=== PATIENT | male | born 1980 | race Caucasian/White ===

== ENCOUNTER 2018-11-03 15:05 | Emergency (ER) | payer BC ==
[2018-11-03 15:18] VITALS: BP 161/98
--- NOTE | 2018-11-03 15:48 | UC ---
Eye Complaint HPI - HPI Summary HPI Summary: Patient was doing work at home, started to get blurred vision in the left eye, in the left field of view. about 15 mins later, developed a mild headache at the occipital region. he does have untreaed hypertension, he sat down, got a drink hoping it would improve, but it remains the same. he has had no weakness, slurred speech or memory deficit. - History of Current Complaint Chief Complaint: UCHeadache Stated Complaint: DOWNING,BLURRED VISION Time Seen by Provider: 11/03/18 15:43 Hx Obtained From: Patient Onset/Duration: Sudden Onset, Lasting Hours Severity Initially: Mild Severity Currently: Mild Pain Intensity: 1 Associated Signs And Symptoms: Positive: Vision Impairment Left - Allergies/Home Medications Allergies/Adverse Reactions: Allergies Allergy/AdvReac Type Severity Reaction Status Date / Time No Known Allergies Allergy Verified 11/03/18 15:18 Home Medications: Home Medications NK [No Home Medications Reported] 11/03/18 [History Confirmed 11/03/18] PMH/Surg Hx/FS Hx/Imm Hx Previously Healthy: Yes - Surgical History Surgical History: Yes Surgery Procedure, Year, and Place: VASECTOMY - Family History Known Family History: Positive: Hypertension - Social History Alcohol Use: None Substance Use Type: None Smoking Status (MU): Never Smoked Tobacco Review of Systems All Other Systems Reviewed And Are Negative: Yes Constitutional: Positive: Negative Skin: Positive: Negative Eyes: Positive: Blurred Vision ENT: Positive: Negative Respiratory: Positive: Negative Cardiovascular: Positive: Negative Gastrointestinal: Positive: Negative Genitourinary: Positive: Negative Motor: Positive: Negative Musculoskeletal: Positive: Negative Neurological: Positive: Headache Psychological: Positive: Negative Is Patient Immunocompromised?: No Physical Exam Triage Information Reviewed: Yes Appearance: Well-Appearing, Well-Nourished, Pain Distress Vital Signs: Initial Vital Signs Temp 98.1 F 11/03/18 15:15 Pulse 81 11/03/18 15:15 Resp 17 11/03/18 15:15 BP 161/98 11/03/18 15:15 Pulse Ox 100 11/03/18 15:15 Vital Signs Reviewed: Yes Eye Exam: Normal ENT Exam: Normal Dental Exam: Normal Neck exam: Normal Respiratory Exam: Normal Respiratory: Positive: Chest non-tender, Lungs clear, Normal breath sounds Cardiovascular Exam: Normal Cardiovascular: Positive: RRR, No Murmur, Pulses Normal Abdominal Exam: Normal Abdomen Description: Positive: Nontender, No Organomegaly, Soft Musculoskeletal Exam: Normal Musculoskeletal: Positive: Strength Intact, ROM Intact, No Edema Neurological: Positive: Alert, Muscle Tone Normal, Other: - PERRLA, EOMI, right field of vision is clear, left field of vision becomes blurry around 80 degrees and loses the vision completey before 180 degrees. No weakness in extremities, speech is clear, able to walk heel to toe in straight line, NEg rhomberg. Psychological Exam: Normal Skin Exam: Normal Eye Complaint Course/Dx - Course Course Of Treatment: hx obtained, exam performed ,meds reviewed, consulted Dr Ching from neurology who recommended an opthamology appoiontment with a referral to ER if they find it necessary. Dr Sue consulted as well. we agreed to CT his Head before sending him anywhere patient is in agreement. - Differential Dx/Diagnosis Differential Diagnosis/HQI/PQRI: Detached Retina, Glaucoma, Other - brain hemmorage, migraine Provider Diagnosis: Blurred vision, left eye, Headache, Hypertension Discharge - Sign-Out/Discharge Documenting (check all that apply): Patient Departure All imaging exams completed and their final reports reviewed: Yes - Discharge Plan Condition: Stable Disposition: HOME Patient Education Materials: Blurred Vision (ED), Hypertension (ED) Referrals: Eduin So MD [Primary Care Provider] - Additional Instructions: 1. your CT of head was negative 2. Follow up with your scheduled eye exam tomorrow at 9 am, [facility]. 3. If you develop any more changes in vision, increased headache or more neurological symtpoms please go straight to ER. 4. Follow up with Dr So about your Blood pressure - Billing Disposition and Condition Condition: STABLE Disposition: Home
== END 2018-11-03 16:17 | disposition home or self-care (01) ==
LOC: UCCORT 15:05
DX: H53.8 Other visual disturbances (principal); R51 Headache; I10 Essential (primary) hypertension
CPT/HCPCS: 70450; 99211; G0463

== ENCOUNTER 2019-11-18 10:51 | Emergency (ER) | payer BC ==
[2019-11-18 11:20] VITALS: BP 142/87
--- NOTE | 2019-11-18 12:01 | UC ---
Respiratory Complaint HPI - HPI Summary HPI Summary: cough x 2 weeks cough is dry , worse with deep breathing, better with rest nasal congestion / pnd, no sore throat, no fever, no chills no wheezing, no sob was tested for COVID19 , waiting for the results - History of Current Complaint Chief Complaint: UCRespiratory Stated Complaint: COUGH Time Seen by Provider: 11/18/19 11:07 Hx Obtained From: Patient Onset/Duration: Gradual Onset, Lasting Weeks - 2, Still Present Timing: Constant Severity Initially: Moderate Severity Currently: Moderate Pain Intensity: 0 Character: Cough: Nonproductive Aggravating Factors: Exertion, Deep Breaths Alleviating Factors: Nothing Associated Signs And Symptoms: Positive: URI, Nasal Congestion. Negative: Fever , Chills, Wheezing, Hemoptysis, Dizziness - Allergies/Home Medications Allergies/Adverse Reactions: Allergies Allergy/AdvReac Type Severity Reaction Status Date / Time No Known Allergies Allergy Verified 11/18/19 11:01 Home Medications: Home Medications Benzonatate CAP* [Tessalon 100 MG CAP*] 100 mg PO TID PRN #21 cap 11/18/19 [Rx] Dm/Acetaminophen/Doxylamine [Night Time Cold & Flu Rel 15-6.25-325 mg] 2 cap PO BEDTIME PRN 11/18/19 [History Confirmed 11/18/19] Lisinopril TAB* [Prinivil TAB*] 5 mg PO DAILY 11/18/19 [History Confirmed ] PMH/Surg Hx/FS Hx/Imm Hx Previously Healthy: Yes - Surgical History Surgical History: Yes Surgery Procedure, Year, and Place: VASECTOMY - Family History Known Family History: Positive: Hypertension - Social History Alcohol Use: Occasionally Substance Use Type: None Smoking Status (MU): Never Smoked Tobacco Review of Systems All Other Systems Reviewed And Are Negative: Yes Constitutional: Positive: Negative Skin: Positive: Negative Eyes: Positive: Negative ENT: Positive: Negative Is Patient Immunocompromised?: No Physical Exam Triage Information Reviewed: Yes Appearance: Well-Appearing, No Pain Distress, Well-Nourished Vital Signs: Initial Vital Signs Temp 98.5 F 11/18/19 11:03 Pulse 79 11/18/19 11:03 Resp 16 11/18/19 11:03 BP 142/87 11/18/19 11:03 Pulse Ox 98 11/18/19 11:03 Vital Signs Reviewed: Yes Eye Exam: Normal Eyes: Positive: Conjunctiva Clear ENT: Positive: Normal ENT inspection, Hearing grossly normal, Pharynx normal Neck: Positive: Supple, Nontender, No Lymphadenopathy Respiratory: Positive: Chest non-tender, Lungs clear, Normal breath sounds Cardiovascular: Positive: RRR, No Murmur, Pulses Normal Skin Exam: Normal Respiratory Course/Dx - Differential Dx/Diagnosis Provider Diagnosis: Bronchitis Discharge ED - Sign-Out/Discharge Documenting (check all that apply): Patient Departure All imaging exams completed and their final reports reviewed: No Studies - Discharge Plan Condition: Stable Disposition: HOME Prescriptions: Benzonatate CAP* [Tessalon 100 MG CAP*] 100 mg PO TID PRN #21 cap PRN Reason: Cough Patient Education Materials: Acute Bronchitis (ED) Forms: COVID-19 Eval & Not Tested Referrals: Eduin So MD [Primary Care Provider] - If Needed - Billing Disposition and Condition Condition: STABLE Disposition: Home
== END 2019-11-18 12:03 | disposition home or self-care (01) ==
LOC: UCCORT 10:51
DX: J40 Bronchitis, not specified as acute or chronic (principal)
CPT/HCPCS: 99212; G0463

== ENCOUNTER 2019-12-16 09:34 | Emergency (ER) | payer BC ==
[2019-12-16 09:47] VITALS: BP 159/95
--- NOTE | 2019-12-16 10:01 | UC ---
Lower Extremity/Ankle HPI - HPI Summary HPI Summary: 38 yo with hx of hypertension, with 3 day hx of pain in the right great toe with associated swelling at the base and mild erythema. No hx of trauma. He has not used analgesics. Recently less cautious with diet, but overall does not have a high intake of red meats or organ meats. Alcohol use is mild, about 1 drink per day, usually spirits. Does not drink beer or wine. FH + for gout in his father. - History of Current Complaint Chief Complaint: UCLowerExtremity Stated Complaint: RIGHT FOOT PAIN Time Seen by Provider: 12/16/19 09:50 Hx Obtained From: Patient Onset/Duration: Sudden Onset Severity Initially: Mild Severity Currently: Mild Pain Intensity: 3 Aggravating Factor(s): Standing, Ambulation Alleviating Factor(s): Rest Able to Bear Weight: Yes - Risk Factors Gout Risk Factors: Male, Hypertension DVT Risk Factors: Negative Septic Arthritis Risk Factor: Negative - Allergies/Home Medications Allergies/Adverse Reactions: Allergies Allergy/AdvReac Type Severity Reaction Status Date / Time No Known Allergies Allergy Verified 12/16/19 09:48 Home Medications: Home Medications Lisinopril TAB* [Prinivil TAB*] 5 mg PO DAILY 11/18/19 [History Confirmed ] Colchicine* [Colcrys*] 0.6 mg PO Q12H #2 tab 12/16/19 [Rx] PMH/Surg Hx/FS Hx/Imm Hx Previously Healthy: Yes Cardiovascular History: Hypertension - Surgical History Surgical History: Yes Surgery Procedure, Year, and Place: VASECTOMY - Family History Known Family History: Positive: Hypertension - father, Other - father has gout - Social History Occupation: Employed Full-time Lives: With Family Alcohol Use: Occasionally Substance Use Type: None Smoking Status (MU): Never Smoked Tobacco Review of Systems All Other Systems Reviewed And Are Negative: Yes Constitutional: Positive: Negative Skin: Positive: Negative Eyes: Positive: Negative ENT: Positive: Negative Respiratory: Positive: Negative Cardiovascular: Positive: Other - treated htn x several years, but increase in BP since age 25. Today's reading higher than is typical. Gastrointestinal: Positive: Negative Genitourinary: Positive: Negative Motor: Positive: Decreased ROM - right great toe Musculoskeletal: Positive: Arthralgia Neurological/Mental Status: Positive: Negative Psychological: Positive: Negative Is Patient Immunocompromised?: No Physical Exam Triage Information Reviewed: Yes Appearance: Well-Appearing, No Pain Distress Vital Signs: Initial Vital Signs Temp 98.2 F 12/16/19 09:43 Pulse 83 12/16/19 09:43 Resp 16 12/16/19 09:43 BP 159/95 12/16/19 09:43 Pulse Ox 100 12/16/19 09:43 Eye Exam: Normal ENT: Positive: Normal ENT inspection Respiratory: Positive: Lungs clear, Normal breath sounds Cardiovascular: Positive: RRR, No Murmur Musculoskeletal Exam: Other - mild erythema of the right first MTP with mild to moderate swelling. Decreased flexion/extension with mild pain. Ankle, subtalar joints normal. Musculoskeletal: Positive: Strength Intact, ROM Limited @ - right foot first MTP Psychological Exam: Normal Skin Exam: Other - mild erythema Lower Extremity Course/Dx - Course Course Of Treatment: Labs done to evaluate for possible gout. Given risk factors, will treat with 2 doses of colchicine. He reports hx of normal renal function. - Differential Dx/Diagnosis Differential Diagnosis/HQI/PQRI: Gout, Other - pseudogout Provider Diagnosis: Gout Discharge ED - Sign-Out/Discharge Documenting (check all that apply): Patient Departure All imaging exams completed and their final reports reviewed: No Studies - Discharge Plan Condition: Stable Disposition: HOME Prescriptions: Colchicine* [Colcrys*] 0.6 mg PO Q12H #2 tab Patient Education Materials: Gout (ED) Referrals: Eduin So MD [Primary Care Provider] - Additional Instructions: You have been prescribed 2 doses of colchicine for treatment of suspected gout. The most common side effect is loose stool and abdominal cramping. Lab have been drawn to assess your uric acid level and renal function, as well as a CRP to check for level of inflammation. Please ensure that you have a follow up assessment and blood pressure check with Dr. So in 1 to 2 weeks. Follow up if you have worsening pain and swelling. - Billing Disposition and Condition Condition: STABLE Disposition: Home
[2019-12-16 14:05] LABS: ABS Basophils 0.1 10^3/ul (0-0.2); ABS Eosinophils 0.1 10^3/ul (0-0.6); ABS Lymphocytes 1.8 10^3/ul (1.0-4.8); ABS Monocytes 0.4 10^3/ul (0-0.8); ABS Neutrophils 2.3 10^3/ul (1.5-7.7); Eosinophil % 2.5 %; Hematocrit 44 % (42-52); Hemoglobin 15.2 g/dL (14.0-18.0); Lymphocyte % 38.5 %; Mean Corpuscular HGB Conc 35 g/dL (31-36); Mean Corpuscular Hemoglobin 30 pg (27-31); Mean Corpuscular Volume 88 fL (80-94); Mean Platelet Volume 6.5 fL (7.4-10.4); Nucleated Red Blood Cells % 0.1; Platelet Count 302 10^3/uL (150-450); Red Blood Count 5.01 10^6 /uL (4.18-5.48); Red Cell Distribution Width 13 % (10-15); White Blood Count 4.7 10^3/uL (3.5-10.8)
[2019-12-16 14:07] LABS: Calcium 9.2 mg/dL (8.6-10.3); Potassium 4.2 mmol/L (3.5-5.0)
[2019-12-16 14:12] LABS: BUN/Creatinine Ratio 19.5 (8-20); C Reactive Protein 2.63 mg/L (<8.01); EGFR African American 118.8 (>60); EGFR Non-African American 98.2 (>60); Uric Acid 5.6 mg/dL (4.4-7.6)
== END 2019-12-16 10:21 | disposition home or self-care (01) ==
LOC: UCCORT 09:34
DX: M10.071 Idiopathic gout, right ankle and foot (principal); I10 Essential (primary) hypertension; Z79.899 Other long term (current) drug therapy
CPT/HCPCS: 36415; 80048; 84550; 85025; 86140; 99212; G0463